=== PATIENT | female | born 1965 | race Caucasian/White ===

== ENCOUNTER 2022-04-13 18:03 | Emergency (ER) | payer OTHER ==
[~2022-04-13] VITALS: Ht 157.5 cm; Wt 77.3 kg
[2022-04-13] MEDS ORDERED: LOSA-382 PO (18:15)
[2022-04-13] MEDS ORDERED: METF-283 PO (18:15)
[2022-04-13] MEDS ORDERED: ATOR10TA69 PO (18:15)
[2022-04-13] MEDS ORDERED: IBUPROFEN 600 MG TABLET PO ONE (20:15)
[2022-04-13] MEDS ORDERED: ACETAMINOPHEN 500 MG TABLET PO ONE (20:15)
[2022-04-13] MEDS ORDERED: BACLOFEN 10 MG TABLET PO ONE (20:15)
[2022-04-13] MEDS ORDERED: BACL10TA PO (21:37)
[2022-04-13] MEDS ORDERED: ACET-66 PO (21:37)
[2022-04-13] MEDS ORDERED: IBUP-1554 PO (21:37)
[2022-04-13 21:48] VITALS: BP 164/94
== END 2022-04-13 22:00 | disposition home or self-care (01) ==
LOC: EMS 18:09
DX: S16.1XXA Strain of muscle, fascia and tendon at neck level, initial encounter (principal); E11.9 Type 2 diabetes mellitus without complications; F10.20 Alcohol dependence, uncomplicated; M50.322 Other cervical disc degeneration at C5-C6 level; M50.323 Other cervical disc degeneration at C6-C7 level; V89.2XXA Person injured in unspecified motor-vehicle accident, traffic, initial encounter; Y93.89 Activity, other specified; Y92.89 Other specified places as the place of occurrence of the external cause; Y99.8 Other external cause status
CPT/HCPCS: 72040; 72070; 72100; 82962; 99284